=== PATIENT | female | born 1990 | race Caucasian/White ===

== ENCOUNTER 2017-07-10 22:12 | Emergency (ER) | payer MEDICAID ==
[~2017-07-10] VITALS: Ht 142.2 cm; Wt 46.0 kg
[2017-07-10] MEDS ORDERED: ACETAMINOPHEN 500MG TABLET PO ONE (23:30)
[2017-07-11 01:00] VITALS: BP 133/77
== END 2017-07-11 01:05 | disposition home or self-care (01) ==
LOC: ER 22:59
DX: S00.83XA Contusion of other part of head, initial encounter (principal); R51 Headache; Z94.0 Kidney transplant status; Y08.89XA Assault by other specified means, initial encounter; Y93.89 Activity, other specified; Y92.69 Other specified industrial and construction area as the place of occurrence of the external cause
CPT/HCPCS: 70450; 70486; 72125; 81025; 99284

== ENCOUNTER 2024-06-15 13:07 | Emergency (ER) | payer MEDICAID, MEDICARE ==
[~2024-06-15] VITALS: Ht 165.1 cm; Wt 55.0 kg
[2024-06-15 13:09] VITALS: O2SAT 100
[2024-06-15 15:32] LABS: DIFFERENTIAL COMMENT 1; HEMOGLOBIN. 11.6 g/dL (12.0-16.0); MEAN CORPUSCULAR HEMOGLOBIN 27.8 pg (28.0-32.0); MEAN CORPUSCULAR HGB CONC 33.2 g/dL (31.0-37.0); MEAN CORPUSCULAR VOLUME 83.7 fL (81.0-99.0); MEAN PLATELET VOLUME 7.6 fl (7.4-10.4); PLATELET 204 x1000/uL (130-400); RED BLOOD CELL COUNT 4.18 mill/uL (4.2-5.4); RED CELL DISTRIBUTION WIDTH 17.9 % (11.6-14.6); WHITE BLOOD COUNT 10.2 x1000/uL (4.5-11.0)
[2024-06-15 15:35] LABS: HCG SCREEN NEGATIVE
[2024-06-15 15:36] LABS: CHLORIDE 103 mEq/L (98-107); POTASSIUM 2.9 mEq/L (3.5-5.1); PROTHROMBIN TIME 10.7 sec (9.6-11.0); SODIUM 140 mEq/L (136-145)
[2024-06-15 15:37] LABS: CALCIUM 8.3 mg/dL (8.7-10.4); CARBON DIOXIDE 24 mEq/L (21-32)
[2024-06-15 15:42] LABS: GLUCOSE 109 mg/dL (70-105); UREA NITROGEN BLOOD 46 mg/dL (9-23)
[2024-06-15 15:44] LABS: ALANINE AMINOTRANSFERASE 22 IU/L (10-49); ALBUMIN 3.7 g/dL (3.2-4.8); ASPARTATE AMINOTRANSFERASE 37 IU/L (<34); BILIRUBIN TOTAL 0.3 mg/dL (0.1-1.0)
[2024-06-15 15:45] LABS: PROTEIN TOTAL 6.8 g/dL (6.0-8.3)
[2024-06-15 15:46] LABS: BILIRUBIN DIRECT < 0.1 mg/dL (<=3.0); CREATININE 7.9 mg/dL (0.6-1.0)
[2024-06-15 15:47] LABS: TROPONIN I HIGH SENSITIVITY 97 ng/L (3.0-34)
[2024-06-15 16:29] LABS: PLATELET ESTIMATE NORMAL
[2024-06-15 18:20] LABS: TROPONIN I HIGH SENSITIVITY 140 ng/L (3.0-34)
[2024-06-15] MEDS: ACETAMINOPHEN 325MG TABLET PO ONE (18:43)
[2024-06-15 20:34] LABS: CLARITY URINE TURBID (CLEAR); COLOR URINE YELLOW (YELLOW); GLUCOSE URINE NEGATIVE (NEGATIVE); KETONES URINE TRACE (NEGATIVE); LEUKOCYTE ESTERASE URINE 3+ (NEGATIVE); NITRITE URINE NEGATIVE (NEGATIVE); OCCULT BLOOD URINE 2+ (NEGATIVE); PH URINE 8.5 (4.5-8.0); PROTEIN URINE 3+ (NEGATIVE); SPECIFIC GRAVITY URINE 1.008 (1.005-1.030); UROBILINOGEN URINE 0.2 E.U./dL (0.2-1.0)
[2024-06-15 20:46] LABS: BACTERIA URINE 2+; RBC URINE 15-25 /hpf (0-2); SQUAMOUS EPITHELIAL CELL URINE FEW /lpf (RARE/1+); WBC URINE 25-50 /hpf (0-2)
[2024-06-15] MEDS ORDERED: CEFP100T8 MT (20:58)
[2024-06-15] MEDS: CEFTRIAXONE 1GM/50ML 50 ML IV ONE (21:16)
[2024-06-15 22:15] VITALS: BP 157/80; PULSE 94; RESP 18; TEMP 36.66960; O2SAT 99
== END 2024-06-15 22:15 | disposition home or self-care (01) ==
LOC: ER 13:07
DX: N39.0 Urinary tract infection, site not specified (principal); N18.6 End stage renal disease; Z99.2 Dependence on renal dialysis
CPT/HCPCS: 99285; 96365; 71045; 80076; 80048; 81003; 84703; 83880; 85025; 85610; 87086; 87186; 84484; 87077; 36415; 93005; J0696